=== PATIENT | female | born 1980 | race Caucasian/White ===

== ENCOUNTER 2018-01-02 22:25 | Emergency (ER) | payer SELFPAY ==
[2018-01-02 22:40] VITALS: PULSE 68; BMI 28.1
[2018-01-02] MEDS ORDERED: METOCLOPRAMIDE HCL INJECTION 10 MG/2 ML VIAL IM ONE (23:33)
[2018-01-02] MEDS ORDERED: ACETAMINOPHEN 325 MG TABLET (FP) PO ONE (23:33)
--- NOTE | 2018-01-02 23:33 | PDOC ---
History of Present Illness - General History Source: Patient Exam Limitations: No Limitations - History of Present Illness Initial Comments: 01/03/18 00:04 The patient is a 37 year old female with no reported past medical history presents to the emergency department with headache and abdominal pain. The patient reports a localized pain to the top and back of the head since yesterday afternoon. The patient reports the pain started slowly thats been progressively getting worse. The patient reports worsening headache associated with abdominal pain, constipation, blurred vision and difficulty breathing through the mouth. The patient reports taking diclofenac, with no relief. Denies history of migraines. Denies any change in appetite. Denies fever, chills , cough or chest pain. Denies nausea, vomiting or diarrhea. Allergies: NKDA LMP: December 27, 2017 Social history: None reported Surgical history: None reported PCP: None reported. <Lauren Ruvalcaba - Last Filed: 01/03/18 00:04> <Laura Hurt - Last Filed: 01/03/18 03:50> - General Chief Complaint: Pain, Acute Stated Complaint: HEADACHE Time Seen by Provider: 01/02/18 23:32 Past History <Lauren Ruvalcaba - Last Filed: 01/03/18 00:04> - Past Medical History CVA: No COPD: No Other medical history: Headaches - Suicide/Smoking/Psychosocial Hx Smoking History: Never smoked Information on smoking cessation initiated: No Hx Alcohol Use: No Drug/Substance Use Hx: No Substance Use Type: None <Laura Hurt - Last Filed: 01/03/18 03:50> - Past Medical History Allergies/Adverse Reactions: Allergies Allergy/AdvReac Type Severity Reaction Status Date / Time No Known Allergies Allergy Verified 01/02/18 22:30 Home Medications: Ambulatory Orders NK [No Known Home Medication] 01/03/18 Review of Systems - Review of Systems Able to Perform ROS?: Yes Comments:: 01/03/18 00:04 GENERAL/CONSTITUTIONAL: No fever or chills. No weakness. HEAD, EYES, EARS, NOSE AND THROAT: (+) blurred vision. No ear pain or discharge. No sore throat. CARDIOVASCULAR: (+) Difficulty breathing through the mouth. No chest pain or shortness of breath. RESPIRATORY: No cough, wheezing, or hemoptysis. GASTROINTESTINAL: (+) constipation and abdominal pain. No nausea, vomiting, diarrhea. GENITOURINARY: No dysuria, frequency, or change in urination. MUSCULOSKELETAL: No joint or muscle swelling or pain. No neck or back pain. SKIN: No rash NEUROLOGIC: (+) headache. No vertigo, loss of consciousness, or change in strength/sensation. ENDOCRINE: No increased thirst. No abnormal weight change. HEMATOLOGIC/LYMPHATIC: No anemia, easy bleeding, or history of blood clots. ALLERGIC/IMMUNOLOGIC: No hives or skin allergy. <Lauren Ruvalcaba - Last Filed: 01/03/18 00:04> *Physical Exam - Vital Signs Last Vital Signs Temp Pulse Resp BP Pulse Ox 97.5 F L 68 20 143/91 100 01/02/18 22:30 01/02/18 22:30 01/02/18 22:30 01/02/18 22:30 01/02/18 22:30 - Physical Exam Comments: 01/03/18 00:04 GENERAL: Afibrial. Awake, alert, and fully oriented, in no acute distress HEAD: No sinus tenderness. No signs of trauma EYES: PERRLA, EOMI, sclera anicteric, conjunctiva clear ENT: Auricles normal inspection, hearing grossly normal, nares patent, oropharynx clear without exudates. Moist mucosa NECK: Normal ROM, supple, no lymphadenopathy, JVD, or masses LUNGS: Breath sounds equal, clear to auscultation bilaterally. No wheezes, and no crackles HEART: Regular rate and rhythm, normal S1 and S2, no murmurs, rubs or gallops ABDOMEN: (+) LLQ tenderness. No suprapubic pain. Soft, normoactive bowel sounds. No guarding, no rebound. No masses EXTREMITIES: Normal range of motion, no edema. No clubbing or cyanosis. No cords, erythema, or tenderness NEUROLOGICAL: Cranial nerves II through XII grossly intact. Normal speech, normal gait SKIN: Warm, Dry, normal turgor, no rashes or lesions noted. <Lauren Ruvalcaba - Last Filed: 01/03/18 00:04> - Vital Signs Last Vital Signs Temp Pulse Resp BP Pulse Ox 97.5 F L 68 20 143/91 100 01/02/18 22:30 01/02/18 22:30 01/02/18 22:30 06/03/18 22:30 01/02/18 22:30 <Laura Hurt - Last Filed: 01/03/18 03:50> ED Treatment Course - LABORATORY CBC & Chemistry Diagram: 01/03/18 03:08 01/03/18 03:08 <Laura Hurt - Last Filed: 01/03/18 03:50> Medical Decision Making - Medical Decision Making 01/03/18 02:17 UA is normal. UCG negative; Head CT pending. All labs are pending. Laboratory is running slow, as all orders must be placed manually. Pt wants to go home, and states that she is feeling better slightly. 01/03/18 03:18 Patient Name: NARCISA ELIZABETH THIS IS A PRELIMINARY REPORT FROM [facility] DATE OF SERVICE: 2018-01-03 02:58:10 IMAGES: [id number] EXAM: HEAD CT WITHOUT CONTRAST HISTORY: Headache COMPARISON: None. FINDINGS: The ventricular system is midline and nondilated. The sulcal pattern is normal for the patient's age. There is no bleed, mass, extra-axial fluid collection or mass effect. No skull fracture or skull lesion is identified. The visualized paranasal sinuses and mastoid air cells are clear. IMPRESSION: No evidence of pathology. 01/03/18 03:30 UA is normal; WBC normal. Chem pending. 01/03/18 03:50 Chem normal. Pt is feeling better and reassured <Laura Hurt - Last Filed: 01/03/18 03:50> *DC/Admit/Observation/Transfer - Attestations Scribe Attestion: 01/03/18 00:05 Documentation prepared by Lauren Ruvalcaba, acting as medical and scientific illustrator for Laura Hurt MD. <Lauren Ruvalcaba - Last Filed: 01/03/18 00:04> - Discharge Dispostion Decision to Admit order: No <Laura Hurt - Last Filed: 01/03/18 03:50> Diagnosis at time of Disposition: Headache - Discharge Dispostion Disposition: HOME Condition at time of disposition: Stable - Patient Instructions Printed Discharge Instructions: DI for Headache
[2018-01-02] MEDS ORDERED: SODIUM CHLORIDE 0.9% 500 ML INFUS.BAG IV ONE (23:42)
[2018-01-02] MEDS ORDERED: METOCLOPRAMIDE HCL INJECTION 10 MG/2 ML VIAL ONE (23:53)
[2018-01-02] MEDS ORDERED: ACETAMINOPHEN 325 MG TABLET (FP) ONE (23:53)
[2018-01-03 01:05] LABS: HCG,QUALITATIVE URINE NEGATIVE
[2018-01-03 01:25] LABS: URINE BILIRUBIN NEGATIVE (<2.0 mg/dL); URINE BLOOD 1+ (NEGATIVE); URINE COLOR YELLOW; URINE GLUCOSE (UA) NEGATIVE (NEGATIVE); URINE KETONE NEGATIVE (NEGATIVE); URINE PROTEIN NEGATIVE (NEGATIVE)
[2018-01-03 01:26] LABS: URINE APPEARANCE SL CLOUDY; URINE LEUK ESTERASE NEGATIVE (NEGATIVE); URINE NITRITE NEGATIVE (NEGATIVE); URINE UROBILINOGEN NORMAL mg/dL (0.2-1.0)
[2018-01-03 01:27] LABS: URINE BACTERIA RARE /hpf (NONE SEEN); URINE MUCUS RARE
[2018-01-03 01:28] LABS: EPI CELLS FEW /HPF (FEW)
[2018-01-03 03:19] LABS: BASO % 0.8 % (0-2.0); EOS % 4.9 % (0-4.5); HEMATOCRIT 40.1 % (32.4-45.2); HEMOGLOBIN 13.5 GM/dL (10.7-15.3); LYMPH % 31.1 % (8-40); MCH 30.7 pg (25.7-33.7); MCHC 33.7 g/dl (32.0-36.0); MEAN PLT VOLUME 10.7 fl (7.5-11.1); MONO % 6.6 % (3.8-10.2); NEUT % 56.6 % (42.8-82.8); PLATELET COUNT 201 K/MM3 (134-434); RDW 13.6 % (11.6-15.6); WHITE BLOOD COUNT 10.1 K/mm3 (4.0-10.0)
[2018-01-03 03:42] LABS: ALBUMIN 3.8 g/dl (3.4-5.0); ALK PHOS 69 U/L (45-117); ANION GAP 9 (8-16); BILIRUBIN,TOTAL 0.4 mg/dL (0.2-1.0); BLOOD UREA NITROGEN 11 mg/dL (7-18); CALCIUM 8.5 mg/dL (8.5-10.1); CHLORIDE 105 mmol/L (98-107); CO2 25 mmol/L (21-32); CREATININE 0.6 mg/dL (0.55-1.02); GLUCOSE,RANDOM 82 mg/dL (74-106); POTASSIUM 3.7 mmol/L (3.5-5.1); SGOT/AST 22 U/L (15-37); SGPT/ALT 36 U/L (12-78); SODIUM 139 mmol/L (136-145); TOT PROT 7.5 g/dl (6.4-8.2)
[2018-01-03 03:56] VITALS: BP 143/90; TEMP 97.4
== END 2018-01-03 03:56 | disposition home or self-care (01) ==
LOC: JER 22:25
PROC: 3E023GC Introduction of Other Therapeutic Substance into Muscle, Percutaneous Approach (ICD-10-PCS; principal; 2018-01-02)
DX: R51 Headache (principal)
CPT/HCPCS: 36415; 70450-TC; 80053; 81003; 81015; 84703; 85025; 99282-25

== ENCOUNTER 2021-05-01 07:11 | Emergency (ER) | payer OTHER ==
[2021-05-01 07:36] VITALS: BP 118/76; PULSE 84; TEMP 98.1; BMI 24.7
[2021-05-01] MEDS ORDERED: KETOROLAC TROMETHAMINE 30 MG/1 ML VIAL IM ONE (08:25)
[2021-05-01] MEDS ORDERED: KETOROLAC TROMETHAMINE 30 MG/1 ML VIAL ONE (08:40)
== END 2021-05-01 09:31 | disposition home or self-care (01) ==
LOC: JER 07:11 → JERFT 07:11
PROC: 3E0233Z Introduction of Anti-inflammatory into Muscle, Percutaneous Approach (ICD-10-PCS; principal; 2021-05-01)
DX: H66.92 Otitis media, unspecified, left ear (principal)
CPT/HCPCS: 99284-25

== ENCOUNTER 2021-05-01 20:07 | Emergency (ER) | payer OTHER ==
[2021-05-01 21:10] VITALS: BP 139/89; PULSE 105; TEMP 99.7; BMI 27.9
[2021-05-02] MEDS ORDERED: CIPROFLOXACIN 0.3% EYE DROPS 5 ML BOTTLE OS ONE (01:45)
[2021-05-02] MEDS ORDERED: CIPROFLOXACIN 0.3% EYE DROPS 5 ML BOTTLE ONE (01:49)
== END 2021-05-02 03:26 | disposition home or self-care (01) ==
LOC: JER 20:07
DX: H60.502 Unspecified acute noninfective otitis externa, left ear (principal)
CPT/HCPCS: 70480-TC; 84703; 99284-25

== ENCOUNTER 2022-01-12 15:45 | Emergency (ER) | payer OTHER ==
[2022-01-12 16:36] VITALS: BP 118/72; PULSE 87; TEMP 98.2; BMI 25.5
[2022-01-12] MEDS ORDERED: METHOCARBAMOL 500 MG TABLET PO ONE (20:14)
[2022-01-12] MEDS ORDERED: METHOCARBAMOL 500 MG TABLET ONE (20:21)
== END 2022-01-12 21:57 | disposition home or self-care (01) ==
LOC: JER 15:45
DX: M54.2 Cervicalgia (principal); M25.572 Pain in left ankle and joints of left foot
CPT/HCPCS: 73610-TC-RT-FY; 73630-TC-RT-FY; 99283-25

== ENCOUNTER 2022-08-10 11:53 | Emergency (ER) | payer OTHER ==
[2022-08-10 12:34] VITALS: BMI 28.5
[2022-08-10 14:37] LABS: BASO % 0.6 % (0-2.0); EOS % 3.6 % (0-4.5); HEMATOCRIT 41.9 % (32.4-45.2); HEMOGLOBIN 13.9 GM/dL (10.7-15.3); LYMPH % 26.3 % (8-40); MCH 29.6 pg (25.7-33.7); MCHC 33.3 g/dl (32.0-36.0); MEAN CELL VOLUME 89.1 fl (80-96); MEAN PLT VOLUME 10.3 fl (7.5-11.1); MONO % 6.1 % (3.8-10.2); NEUT % 63.4 % (42.8-82.8); PLATELET COUNT 223 10^3/uL (134-434); RDW 13.6 % (11.6-15.6); WHITE BLOOD COUNT 8.9 K/mm3 (4.0-10.0)
[2022-08-10 14:53] LABS: CALCIUM 9.1 mg/dL (8.5-10.1)
[2022-08-10 14:54] LABS: BLOOD UREA NITROGEN 10.8 mg/dL (7-18)
[2022-08-10 14:57] LABS: CREATININE 0.6 mg/dL (0.55-1.3)
[2022-08-10 14:58] LABS: BILIRUBIN,TOTAL 0.2 mg/dL (0.2-1)
[2022-08-10 17:25] VITALS: BP 115/75; PULSE 67; RESP 16; TEMP 97.7
== END 2022-08-10 15:23 | disposition home or self-care (01) ==
LOC: JER 11:53
DX: E11.65 Type 2 diabetes mellitus with hyperglycemia (principal)
CPT/HCPCS: 36415; 80053; 82962; 83036; 85025; 99283-25